=== PATIENT | male | born 1965 | race Caucasian/White ===

== ENCOUNTER 2021-09-06 16:56 | Emergency (ER) | payer BC ==
--- NOTE | 2021-09-06 17:07 | ED ---
General Adult HPI - General Stated complaint: covid+, wants infusion - History of Present Illness Initial comments: Kyle is a 56yo M with PMH of sarcoidoisis who presents to the ER today via private vehicle requesting treatment for COVID-19. Patient tested positive earlier today, he does have sarcoidosis he is on chronic prednisone resulting in immunosuppression therefore he has a candidate multiple antibody therapies. Patient is fully vaccinated including a booster vaccine. - Related Data Home Medications Medication Instructions Recorded Confirmed Acetaminophen [Tylenol Extra 1,000 mg PO ONCE PRN 09/06/21 09/06/21 Strength] mycophenolate mofetiL [Cellcept] 1,000 mg PO BID 09/06/21 09/06/21 Allergies Allergy/AdvReac Type Severity Reaction Status Date / Time Cephalosporins Allergy Rash/Hives Verified 09/06/21 20:36 Review of Systems ROS Statement: Those systems with pertinent positive or pertinent negative responses have been documented in the HPI. ROS Other: All systems not noted in ROS Statement are negative. General Exam - General Exam Comments Initial Comments: Physical Exam GENERAL: Patient is well-developed and well-nourished. Patient is nontoxic and well-hydrated and is in no distress. HENT: Normocephalic, Atraumatic. EYES: PERRL, EOMI PULMONARY: Unlabored respirations. CARDIOVASCULAR: RRR Warm and well perfused extremities ABDOMEN: Non-distended SKIN: No rashes or bruising : Deferred NEUROLOGIC: Alert and oriented Normal speech Normal gait MUSCULOSKELETAL: Moving all extremities with no apparent injury PSYCHIATRIC: No SI/HI Course Vital Signs 09/06/21 09/06/21 09/06/21 17:09 18:28 18:44 Temperature 97.9 F Pulse Rate 75 48 L 86 Respiratory 20 20 18 Rate Blood Pressure 127/89 148/95 137/98 O2 Sat by Pulse 96 88 L 98 Oximetry 09/06/21 09/06/21 09/06/21 19:07 19:40 20:20 Temperature Pulse Rate 87 95 Respiratory 16 18 16 Rate Blood Pressure 127/78 133/99 O2 Sat by Pulse 97 95 Oximetry Medical Decision Making - Medical Decision Making Patient was seen and evaluated, patient is a 56-year-old male with sarcoidosis chronic lung disease and immunosuppression he is a candidate for chronic lung therapy for COVID-19 which he tested positive for earlier today. Miconazole ordered however nearly immediately after beginning the infusion the patient he came diaphoretic, bradycardic and there is difficulty getting and oxygen reading on the finger. Patient was moved from his room to resuscitation. He received treatment for ALLERGIC reaction was slightly Medrol, Benadryl and Pepcid. Vital signs normalized within 15 minutes, EKG was obtained there was some ectopy but no other abnormalities. Labs are obtained consistent with COVID there is no elevated troponin. Patient remained a symptomatically he was observed for 90 minutes after the reaction was stable for discharge home. At the time of discharge patient was still having occasional PVCs on the monitor, I advised him to pursue further outpatient workup with cardiology for frequent ectopy. No indication for immediate evaluation at this time patient is comfortable with this plan. - Lab Data Result diagrams: 09/06/21 18:51 09/06/21 18:51 Lab Results 09/06/21 09/06/21 09/06/21 Range/Units 18:51 18:51 18:51 WBC 3.9 (3.8-10.6) k/uL RBC 4.64 (4.30-5.90) m/uL Hgb 14.0 (13.0-17.5) gm/dL Hct 41.1 (39.0-53.0) % MCV 88.5 (80.0-100.0) fL MCH 30.3 (25.0-35.0) pg MCHC 34.2 (31.0-37.0) g/dL RDW 13.0 (11.5-15.5) % Plt Count 144 L (150-450) k/uL MPV 7.7 Neutrophils % 80 % Lymphocytes % 14 % Monocytes % 3 % Eosinophils % 1 % Basophils % 1 % Neutrophils # 3.1 (1.3-7.7) k/uL Lymphocytes # 0.6 L (1.0-4.8) k/uL Monocytes # 0.1 (0-1.0) k/uL Eosinophils # 0.1 (0-0.7) k/uL Basophils # 0.0 (0-0.2) k/uL PT 11.3 (9.0-12.0) sec INR 1.1 (<1.2) APTT 23.5 (22.0-30.0) sec Sodium 137 (137-145) mmol/L Potassium 3.9 (3.5-5.1) mmol/L Chloride 105 (98-107) mmol/L Carbon Dioxide 24 (22-30) mmol/L Anion Gap 8 mmol/L BUN 18 (9-20) mg/dL Creatinine 1.21 (0.66-1.25) mg/dL Est GFR (CKD-EPI)AfAm 78 (>60 ml/min/1.73 sqM) Est GFR (CKD-EPI)NonAf 67 (>60 ml/min/1.73 sqM) Glucose 84 (74-99) mg/dL Calcium 8.5 (8.4-10.2) mg/dL Magnesium 1.8 (1.6-2.3) mg/dL Total Bilirubin 0.8 (0.2-1.3) mg/dL AST 35 (17-59) U/L ALT 21 (4-49) U/L Alkaline Phosphatase 57 (38-126) U/L Creatine Kinase 80 (55-170) U/L Troponin I (0.000-0.034) ng/mL Total Protein 6.8 (6.3-8.2) g/dL Albumin 4.0 (3.5-5.0) g/dL 09/06/21 Range/Units 18:51 WBC (3.8-10.6) k/uL RBC (4.30-5.90) m/uL Hgb (13.0-17.5) gm/dL Hct (39.0-53.0) % MCV (80.0-100.0) fL MCH (25.0-35.0) pg MCHC (31.0-37.0) g/dL RDW (11.5-15.5) % Plt Count (150-450) k/uL MPV Neutrophils % % Lymphocytes % % Monocytes % % Eosinophils % % Basophils % % Neutrophils # (1.3-7.7) k/uL Lymphocytes # (1.0-4.8) k/uL Monocytes # (0-1.0) k/uL Eosinophils # (0-0.7) k/uL Basophils # (0-0.2) k/uL PT (9.0-12.0) sec INR (<1.2) APTT (22.0-30.0) sec Sodium (137-145) mmol/L Potassium (3.5-5.1) mmol/L Chloride (98-107) mmol/L Carbon Dioxide (22-30) mmol/L Anion Gap mmol/L BUN (9-20) mg/dL Creatinine (0.66-1.25) mg/dL Est GFR (CKD-EPI)AfAm (>60 ml/min/1.73 sqM) Est GFR (CKD-EPI)NonAf (>60 ml/min/1.73 sqM) Glucose (74-99) mg/dL Calcium (8.4-10.2) mg/dL Magnesium (1.6-2.3) mg/dL Total Bilirubin (0.2-1.3) mg/dL AST (17-59) U/L ALT (4-49) U/L Alkaline Phosphatase (38-126) U/L Creatine Kinase (55-170) U/L Troponin I <0.012 (0.000-0.034) ng/mL Total Protein (6.3-8.2) g/dL Albumin (3.5-5.0) g/dL - EKG Data -: EKG Interpreted by Vt EKG Comments: EKG was obtained due to arrhythmia on the monitor, EKG was obtained 1838 rate is 86 rhythm is sinus with frequent PVCs there is normal axis normal intervals are no acute ST elevations or depressions or evidence of ischemia or infarction. Disposition Clinical Impression: COVID-19, Drug reaction Disposition: HOME SELF-CARE Condition: Stable Additional Instructions: You appeared to have an allergic reaction to monoclonal anti-bodies, your reaction seems to have subsided. Continue to do supportive care for COVID-19 (Vitamin C, Zinc, Vitamin D, hydration, fever management) Return to the ER for any worsening or development of new or concerning symptoms Is patient prescribed a controlled substance at d/c from ED?: No Referrals: None,Stated [Primary Care Provider] - 1-2 days
[2021-09-06 17:12] VITALS: TEMP 97.9
[2021-09-06] MEDS ORDERED: SODIUM CHLORIDE 0.9% 50 ML IVPB ONE (17:30)
[2021-09-06] MEDS ORDERED: BAMLANIVIMAB (EUA) 700 MG, ETESEVIMAB (EUA) 1,400 MG in SODIUM CHLORIDE 0.9% 50 ML IVPB ONE (17:30)
[2021-09-06] MEDS ORDERED: diphenhydrAMINE 50 MG/ML 1 ML VIAL IVP STA (18:34)
[2021-09-06] MEDS ORDERED: FAMOTIDINE 20 MG/2 ML VIAL IV STA (18:34)
[2021-09-06] MEDS ORDERED: methylPREDNISolone SOD SUCCI 125 MG/2 ML VIAL IV STA (18:36)
[2021-09-06 19:00] LABS: Basophils % (A) 1 %; Eosinophils # (A) 0.1 k/uL (0-0.7); Eosinophils % (A) 1 %; HCT 41.1 % (39.0-53.0); Lymphocytes # (A) 0.6 k/uL (1.0-4.8); Lymphocytes % (A) 14 %; MCH 30.3 pg (25.0-35.0); MCHC 34.2 g/dL (31.0-37.0); MCV 88.5 fL (80.0-100.0); Mean Platelet Volume 7.7; Monocytes # (A) 0.1 k/uL (0-1.0); Monocytes % (A) 3 %; Neutrophils # (A) 3.1 k/uL (1.3-7.7); Neutrophils % (A) 80 %; Platelet Count 144 k/uL (150-450); RBC 4.64 m/uL (4.30-5.90); WBC 3.9 k/uL (3.8-10.6)
[2021-09-06 19:15] LABS: Calcium 8.5 mg/dL (8.4-10.2); INR 1.1 (<1.2); Magnesium 1.8 mg/dL (1.6-2.3); Partial Thromboplastin Time 23.5 sec (22.0-30.0); Prothrombin Time 11.3 sec (9.0-12.0); Total Bilirubin 0.8 mg/dL (0.2-1.3); Total Protein 6.8 g/dL (6.3-8.2)
--- NOTE | 2021-09-06 19:16 | XR ---
EXAMINATION TYPE: XR chest 1V portable DATE OF EXAM: 09/06/2021 COMPARISON: NONE HISTORY: Chest pain TECHNIQUE: Single view FINDINGS: There is some linear density right midlung field. Heart size is normal. There are no hilar masses. There are chest leads. There is slight increased interstitial density in the lungs. IMPRESSION: There is coarsening of the lung markings. There is some mild atelectasis or scarring in t he right midlung field. No heart failure. Normal heart.
[2021-09-06 19:18] LABS: Potassium 3.9 mmol/L (3.5-5.1)
[2021-09-06 20:22] VITALS: BP 133/99; PULSE 95; RESP 16
== END 2021-09-06 21:30 | disposition home or self-care (01) ==
LOC: EC 16:56
DX: U07.1 COVID-19 (principal); Z88.1 Allergy status to other antibiotic agents
CPT/HCPCS: 36415; 93005; 80053; 82550; 83735; 84484; 85025; 85610; 85730; 71045; 99284; 96374; 96375; J1200; J2930; J3490